=== PATIENT | female | born 1975 | race Caucasian/White ===

== ENCOUNTER 2022-06-29 06:00 | Emergency (ER) | payer SELFPAY ==
[2022-06-29] MEDS ORDERED: Dexamethasone 4 MG TAB ONE (06:37)
[2022-06-29] MEDS ORDERED: Lidocaine 4% Cream 5 GM TUBE w/ Tegaderm ONE (06:37)
[2022-06-29] MEDS ORDERED: Ibuprofen 200 MG TAB ONE (06:37)
[2022-06-29] MEDS ORDERED: Lidocaine 5% Patch TD SCH (07:00)
[2022-06-29] MEDS ORDERED: LIDOCAINE Patch Removal TOP SCH (19:00)
== END 2022-06-29 07:17 | disposition home or self-care (01) ==
LOC: BURERS 06:00
DX: M54.31 Sciatica, right side (principal)
CPT/HCPCS: 99283; J8540